=== PATIENT | male | born 1935 | race Asian ===

== ENCOUNTER 2017-09-10 12:19 | Outpatient (CLI) | payer MEDICARE, MEDICAID ==
[~2017-09-10 12:19] MED LIST: ALLO100T PO; ASPI-1265 PO; HYDR1TAB69 PO; PRED20TA PO
== END 2017-09-10 23:59 | disposition home or self-care (01) ==
LOC: RAD 12:19
PROVIDERS: ATTEND Student in an Organized Health Care Education/Training Program
DX: R90.82 White matter disease, unspecified (principal)
CPT/HCPCS: 70551

== ENCOUNTER 2017-09-30 08:07 | Emergency (ER) | payer MEDICARE, MEDICAID ==
[~2017-09-30] VITALS: Ht 157.5 cm; Wt 66.0 kg
[2017-09-30 08:12] VITALS: BP 154/88
[2017-09-30] MEDS ORDERED: dexamethasone 4mg tablet PO ONE (08:30)
[2017-09-30] MEDS ORDERED: colchicine 0.6mg tablet PO ONE (08:30)
[2017-09-30] MEDS ORDERED: naproxen 500mg tablet PO ONE (08:30)
[2017-09-30] MEDS ORDERED: HYDROcodone/acetaminophen 10/325mg tab PO ONE (08:30)
[2017-09-30 08:45] LABS: BASOPHILS % (AUTO) 0 % (0-1); EOSINOPHILS % (AUTO) 0 % (0-6); HEMATOCRIT 28.9 % (42.0-52.0); HEMOGLOBIN 10.1 g/dl (14.0-17.9); LYMPHOCYTES % (AUTO) 5.9 % (21-51); MEAN CORPUSCULAR HGB CONC 35.1 % (33.0-36.5); MEAN CORPUSCULAR VOLUME 88.3 FL (78-98); MEAN PLATELET VOLUME 8.2 FL (7.4-10.4); MONOCYTES # (AUTO) 1.4 X10'3 (0-0.9); MONOCYTES % (AUTO) 8.7 % (2-12); NEUTROPHILS # (AUTO) 13.9 X10'3 (1.8-7.7); NEUTROPHILS % (AUTO) 85.4 % (42-75); PLATELET COUNT 202 X10'3 (140-440); RED BLOOD COUNT 3.27 X10'6 (4.70-6.10); RED CELL DISTRIBUTION WIDTH 13.7 % (11.5-14.5); WHITE BLOOD COUNT 16.2 X10'3 (4.5-11.0)
[2017-09-30] MEDS ORDERED: morphine 2 MG/ML inj. syringe IV ONE (08:55)
[2017-09-30 09:01] LABS: ALANINE AMINOTRANSFERASE 46 U/L (12-78); ALBUMIN 2.6 G/DL (3.4-5.0); ALBUMIN/GLOBULIN RATIO 0.5 (1.1-1.5); ALKALINE PHOSPHATASE 236 IU/L (46-116); ANION GAP 14 (8-16); ASPARTATE AMINO TRANSFERASE 75 U/L (10-37); BILIRUBIN,TOTAL 2.6 MG/DL (0.1-1.0); BLOOD UREA NITROGEN 37 MG/DL (7-18); BUN/CREATININE RATIO 16.8 (5.4-32.0); CALCIUM 9.4 MG/DL (8.5-10.1); CHLORIDE 102 MMOL/L (99-107); CREATINE KINASE 178 U/L (39-308); GLUCOSE 142 MG/DL (70-104); LACTATE DEHYDROGENASE 190 U/L (85-227); MAGNESIUM 1.4 MG/DL (1.5-2.4); POTASSIUM 3.9 MMOL/L (3.5-5.1); SODIUM 137 MMOL/L (135-145); TOTAL CARBON DIOXIDE 21.3 MMOL/L (24-32); TOTAL PROTEIN 8.1 G/DL (6.4-8.2); eGFR 29 ML/MIN
[2017-09-30] MEDS ORDERED: morphine 4 MG/ML inj SYRINge IV ONE (09:05)
[2017-09-30] MEDS ORDERED: HYDR-569 PO (09:58)
== END 2017-09-30 10:36 | disposition home or self-care (01) ==
LOC: ER 08:08
DX: M10.9 Gout, unspecified (principal)
CPT/HCPCS: 36415; 71045; 73020; 80053; 82550; 83605; 83615; 83735; 84484; 84550; 85025; 87040; 93005; 96374; 99285; J2270; J8540

== ENCOUNTER 2020-12-03 12:18 | Emergency (ER) | payer MEDICARE, MEDICAID ==
[~2020-12-03] VITALS: Ht 137.2 cm; Wt 45.5 kg
[~2020-12-03 12:18] MED LIST changes: +HYDR-4383 PO
[2020-12-03 12:26] VITALS: BP 139/89
--- NOTE | 2020-12-03 12:32 | NUR ---
UNABLE TO OBTAIN OFFICIAL TENTER FRAME BACK TENDER R/T RARE DIALECT PER LOOM OPERATOR APPRENTICE.
[2020-12-03] MEDS ORDERED: methylPREDNISolone sod succ 125mg/2ml vial IV ONE (12:35)
[2020-12-03] MEDS ORDERED: colchicine 0.6mg tablet PO ONE (12:35)
[2020-12-03] MEDS ORDERED: normal saline 1000ML IV soln IVB ONE (12:35)
[2020-12-03] MEDS ORDERED: HYDROcodone/acetaminophen 10/325mg tab PO ONE (12:35)
[2020-12-03 12:54] LABS: BASOPHILS % (AUTO) 0.3 % (0-1); EOSINOPHILS % (AUTO) 0.3 % (0-6); HEMATOCRIT 34.2 % (42.0-52.0); HEMOGLOBIN 11.2 g/dl (14.0-17.9); LYMPHOCYTES # (AUTO) 1.5 X10'3 (1.1-4.8); LYMPHOCYTES % (AUTO) 10.5 % (21-51); MEAN CORPUSCULAR HEMOGLOBIN 29.6 PG (27.0-31.0); MEAN CORPUSCULAR HGB CONC 32.8 g/dL (33.0-36.5); MEAN CORPUSCULAR VOLUME 90.2 FL (78-98); MEAN PLATELET VOLUME 7.7 FL (7.4-10.4); MONOCYTES # (AUTO) 1.3 X10'3 (0-0.9); MONOCYTES % (AUTO) 9.2 % (2-12); NEUTROPHILS # (AUTO) 11.4 X10'3 (1.8-7.7); NEUTROPHILS % (AUTO) 79.7 % (42-75); PLATELET COUNT 357 X10'3 (140-440); RED BLOOD COUNT 3.79 X10'6 (4.70-6.10); RED CELL DISTRIBUTION WIDTH 14.5 % (11.5-14.5); WHITE BLOOD COUNT 14.3 X10'3 (4.5-11.0)
[2020-12-03 13:09] LABS: ALANINE AMINOTRANSFERASE 20 U/L (12-78); ALBUMIN 2.6 G/DL (3.4-5.0); ALBUMIN/GLOBULIN RATIO 0.4 (1.1-1.5); ALKALINE PHOSPHATASE 161 IU/L (46-116); ANION GAP 12 (8-16); ASPARTATE AMINO TRANSFERASE 30 U/L (10-37); BILIRUBIN,TOTAL 0.8 MG/DL (0.1-1.0); BLOOD UREA NITROGEN 50 MG/DL (7-18); BUN/CREATININE RATIO 21.6 (5.4-32.0); CALCIUM 9.7 MG/DL (8.5-10.1); CHLORIDE 100 MMOL/L (99-107); CREATININE 2.31 MG/DL (0.60-1.10); GLUCOSE 137 MG/DL (70-104); POTASSIUM 4.4 MMOL/L (3.5-5.1); SODIUM 137 MMOL/L (135-145); TOTAL CARBON DIOXIDE 25.1 MMOL/L (24-32); TOTAL PROTEIN 8.4 G/DL (6.4-8.2); eGFR 27 ML/MIN
--- NOTE | 2020-12-03 13:48 | NUR ---
family called, no answer at this time.
[2020-12-03] MEDS ORDERED: FEBU80TA3 PO (14:10)
[2020-12-03] MEDS ORDERED: HYDR-3972 PO (14:10)
[2020-12-03] MEDS ORDERED: PRED20TA PO (14:10)
[2020-12-03 14:24] LABS: CLARITY,URINE SLIGHTLY CLOUDY (Clear); COLOR,URINE YELLOW (Yellow); GLUCOSE, URINE NEGATIVE (Neg); KETONES,URINE NEGATIVE (Neg); LEUKOCYTE ESTERASE ,URINE NEGATIVE (Neg); NITRITES, URINE NEGATIVE (Neg); OCCULT BLOOD,URINE SMALL (Neg); PH,URINE 5.5 (4.8-8.0); PROTEIN,URINE 30 mg/dl (Neg); UROBILINOGEN,URINE 0.2 E.U/dL (0.2-1.0)
[2020-12-03 14:25] LABS: UA COLLECTION TYPE VOIDED
[2020-12-03 14:30] LABS: MUCUS STRANDS FEW /LPF (Neg); SQUAMOUS EPITHELIAL CELL,UR FEW /LPF (FEW)
[2020-12-03 14:32] LABS: BACTERIA,URINE FEW /HPF (Neg); RBC,URINE 0-2 /HPF (0-2)
[2020-12-03] MEDS ORDERED: CEPH-585 PO (14:43)
--- NOTE | 2020-12-03 14:43 | NUR ---
Telephone call to daughter at this time, no answer, will continue to re attempt.
[2020-12-03] MEDS ORDERED: cephalexin 250mg capsule PO ONE (14:55)
--- NOTE | 2020-12-03 15:04 | NUR ---
Call to family at this time, no answer, Dr Gregorio aware.
--- NOTE | 2020-12-03 16:46 | NUR ---
attempted to call daughter, no answer, left msg
--- NOTE | 2020-12-03 16:57 | NUR ---
family has returned call and will be here at some time today to take pt home
--- NOTE | 2020-12-03 17:19 | NUR ---
family will be here in 10-15 minutes
== END 2020-12-03 18:08 | disposition home or self-care (01) ==
LOC: ER 12:19
DX: M10.9 Gout, unspecified (principal); N28.9 Disorder of kidney and ureter, unspecified; D72.829 Elevated white blood cell count, unspecified; N39.0 Urinary tract infection, site not specified; M19.90 Unspecified osteoarthritis, unspecified site; Z79.899 Other long term (current) drug therapy
CPT/HCPCS: 36415; 71045; 80053; 81001; 84550; 85025; 87088; 96374; 99284; J2930; J7030

== ENCOUNTER 2021-07-25 21:45 | Inpatient (IN) | payer MEDICARE, MEDICAID ==
[~2021-07-25] VITALS: Ht 152.4 cm; Wt 68.0 kg
[~2021-07-25 21:45] MED LIST changes: +CEPH-585 PO; +FEBU80TA3 PO
[2021-07-25 22:39] LABS: BASOPHILS % (AUTO) 0.5 % (0-1); EOSINOPHILS # (AUTO) 0.1 X10'3 (0-0.9); EOSINOPHILS % (AUTO) 0.9 % (0-6); HEMATOCRIT 36.5 % (42.0-52.0); HEMOGLOBIN 11.7 g/dl (14.0-17.9); LYMPHOCYTES # (AUTO) 1.1 X10'3 (1.1-4.8); MEAN CORPUSCULAR HEMOGLOBIN 29.5 PG (27.0-31.0); MEAN PLATELET VOLUME 8.7 FL (7.4-10.4); MONOCYTES # (AUTO) 0.9 X10'3 (0-0.9); MONOCYTES % (AUTO) 12.1 % (2-12); NEUTROPHILS # (AUTO) 5.3 X10'3 (1.8-7.7); NEUTROPHILS % (AUTO) 71.5 % (42-75); PLATELET COUNT 248 X10'3 (140-440); RED BLOOD COUNT 3.97 X10'6 (4.70-6.10); RED CELL DISTRIBUTION WIDTH 16.3 % (11.5-14.5); WHITE BLOOD COUNT 7.3 X10'3 (4.5-11.0)
[2021-07-25 22:51] LABS: ALANINE AMINOTRANSFERASE 14 U/L (12-78); ALBUMIN 3.1 G/DL (3.4-5.0); ALBUMIN/GLOBULIN RATIO 0.6 (1.1-1.5); ALKALINE PHOSPHATASE 246 IU/L (46-116); ANION GAP 18 (8-16); ASPARTATE AMINO TRANSFERASE 63 U/L (10-37); BILIRUBIN,TOTAL 0.8 MG/DL (0.1-1.0); BLOOD UREA NITROGEN 72 MG/DL (7-18); CALCIUM 9.2 MG/DL (8.5-10.1); CHLORIDE 104 MMOL/L (99-107); CREATININE 3.27 MG/DL (0.60-1.10); GLUCOSE 114 MG/DL (70-104); LIPASE 360 U/L (73-393); POTASSIUM 4.4 MMOL/L (3.5-5.1); SODIUM 139 MMOL/L (135-145); TOTAL CARBON DIOXIDE 17.1 MMOL/L (24-32); TOTAL PROTEIN 7.9 G/DL (6.4-8.2); eGFR 18 ML/MIN
[2021-07-26] MEDS ORDERED: potassium CL 10mEq/100ml bag 100 ML IV PRN (02:40)
[2021-07-26] MEDS ORDERED: magnesium 2GM in 50ml NS 50 ML IV PRN (02:40)
[2021-07-26] MEDS ORDERED: acetaminophen 325mg tablet PO PRN (02:40)
[2021-07-26] MEDS ORDERED: magnesium 4gm in 100ml NS 100 ML IV PRN (02:40)
[2021-07-26] MEDS ORDERED: magnesium Cl slow-release 64mg tablet PO PRN (02:40)
[2021-07-26] MEDS ORDERED: potassium Cl 20 mEq SR tablet PO PRN ×2 (02:40)
[2021-07-26] MEDS: normal saline 1000ml 1,000 ML IV SCH ×2 (04:39→22:31)
--- NOTE | 2021-07-26 04:41 | NUR ---
Per EMS documentation, family contact number is [phone]
[2021-07-26] MEDS: K and/or MAG REPLACEMENT MC SCH ×2 (06:55→20:00)
[2021-07-26] MEDS: CefTRIAXone 2gm/D5W 50ml BAG 50 ML IV SCH (07:46)
[2021-07-26] MEDS: furosemide 40mg/4ml inj IV SCH ×2 (07:46→22:31)
[2021-07-26] MEDS ORDERED: heparin, porcine 5000 units/ml vial SQ SCH (08:00)
[2021-07-26] MEDS ORDERED: FEBU80TA PO (09:48)
[2021-07-26] MEDS ORDERED: COLC0.6T67 PO (09:48)
--- NOTE | 2021-07-26 10:17 | NUR ---
talked with family member who stated pt has been c/o generalized weakness and body aches for the past 2 wks. family stated pt has not been eating and if he does he has chest pain afterwards. [phone] King asked family to come to ED to talk about test results.
[2021-07-26] MEDS: ondansetron/PF 4mg/2ml inj IV PRN ×2 (11:47→22:33)
[2021-07-26] MEDS: morphine 2 MG/ML inj. syringe IV PRN (11:47)
--- NOTE | 2021-07-26 11:47 | NUR ---
per family pt c/o nausea and abd pain. per family stated would be unable to keep meds down.
--- NOTE | 2021-07-26 13:16 | NUR ---
pt to IR
--- NOTE | 2021-07-26 13:34 | NUR ---
IR staff was under the impression that Pedro [phone] was the consenting body for this patient. It was learned from the TOBACCO ROLLER responsible for the patient that there was a grandson involved who stated Pedro was not related to the patient and was not able to consent for the patient. Because of the discrepansy no procedure will be done at this time and a more formal process should take place to gain the proper consenting person's information. At which time IR will gain consent for procedure and proceed.
--- NOTE | 2021-07-26 13:51 | NUR ---
AFTER SEVERAL CONVERSATIONS WITH FAMILY IT HAS BEEN ESTABLISHED THAT SELENE ([phone])THE PTS SON MAKES MEDICAL DESCIONS FOR PT. SELENE USES [employer] TO TRANSLATE FOR HIM. SASHA THE PT NEPHEW IS USED THE SECOND LOAN COORDINATOR IF [facility] IS NOT AVAILABLE
[2021-07-26] MEDS: lactobacillus rhamnosus 10,000 MMU CELLS/CAPSULE PO SCH (20:00)
[2021-07-26 20:35] LABS: MAGNESIUM 1.8 MG/DL (1.5-2.4)
[2021-07-26] MEDS ORDERED: temazepam 15mg capsule PO PRN (21:00)
[2021-07-26 21:30] VITALS: BP 81/56
--- NOTE | 2021-07-26 21:30 | NUR ---
noted decreased BP and decreased sats at 82% on RA. placed on 4L oxygen - sats up to 95%. will continue to monitor. decreased bp at 81/56 map 61. paged info to Dr. Sr requesting bouls of IVF, repeat lactic level from 2.7 earlier, and question lasix order.
[2021-07-26 22:43] VITALS: BP 107/65
--- NOTE | 2021-07-26 22:50 | NUR ---
bp 107/65. no return call from dr. Sr. NS at 50ml/hr. cont pulse ox with 4L oxygen still at 93%. tried to explain need for UA to patient and provided apple juice and water. pt declined anything to eat. zofran given for nausea again. held lasix due to decreased BP. will continue to monitor.
[2021-07-26 23:54] VITALS: BP 87/48
[2021-07-27] VITALS (17 sets, daily range): BP systolic 84–134; BP diastolic 43–82
--- NOTE | 2021-07-27 00:03 | NUR ---
pt laying on left side to assist with breathing and for pain. grimaces whenever right arm moves or has to roll onto back. BP on upper left arm is lower when on his side. freq vs obtained - will continue to monitor. pt resting - sats 95 % and patient took off oxygen. urinal at bedside for UA - unsure if pt able to void with hx of CKD. cont pulse ox on telemetry.
--- NOTE | 2021-07-27 00:17 | NUR ---
no return call from Dr. Sr
--- NOTE | 2021-07-27 03:01 | NUR ---
Dr. Rollins ordered 250ml NS bolus, recheck blood pressure. if pressure below 90/50 give second bolus of 250ml. dr. rollins stated he would order an echo and ok to repeat lactic in am.
--- NOTE | 2021-07-27 04:26 | NUR ---
bolus complete. BP greater than 90/50. no need for second bolus. will continue to monitor. still no urine noted.
[2021-07-27 05:35] LABS: CLARITY,URINE SLIGHTLY CLOUDY (Clear); COLOR,URINE YELLOW (Yellow); GLUCOSE, URINE NEGATIVE (Neg); KETONES,URINE TRACE mg/dl (Neg); LEUKOCYTE ESTERASE ,URINE TRACE (Neg); NITRITES, URINE NEGATIVE (Neg); OCCULT BLOOD,URINE NEGATIVE (Neg); PROTEIN,URINE NEGATIVE (Neg); UROBILINOGEN,URINE 0.2 E.U/dL (0.2-1.0)
[2021-07-27 05:37] LABS: UA COLLECTION TYPE VOIDED
[2021-07-27 05:46] LABS: BACTERIA,URINE 2+ /HPF (Neg); MUCUS STRANDS NONE SEEN /LPF (Neg); RBC,URINE 0-2 /HPF (0-2); SQUAMOUS EPITHELIAL CELL,UR MODERATE /LPF (FEW)
[2021-07-27 05:47] LABS: COARSE GRANULAR CAST 0-3 /LPF (NEGATIVE)
--- NOTE | 2021-07-27 06:17 | NUR ---
reported to days. noted patient BP stable - need for thoracentesis and translater / POA contact due to patient's deaf.
--- NOTE | 2021-07-27 06:38 | NUR ---
Patient in room PCU 3018. I have received report from Nona GRIMES and had the opportunity to ask questions and assume patient care. Pt supine with HOB at 15 degrees, chest rising and falling evenly. safety measures in place. pt does not rouse to nurses voice.
[2021-07-27 07:07] LABS: BASOPHILS % (AUTO) 0.5 % (0-1); EOSINOPHILS # (AUTO) 0.1 X10'3 (0-0.9); EOSINOPHILS % (AUTO) 0.7 % (0-6); HEMATOCRIT 30.1 % (42.0-52.0); HEMOGLOBIN 9.8 g/dl (14.0-17.9); LYMPHOCYTES # (AUTO) 0.9 X10'3 (1.1-4.8); MEAN CORPUSCULAR HEMOGLOBIN 29.5 PG (27.0-31.0); MEAN CORPUSCULAR HGB CONC 32.5 g/dL (33.0-36.5); MEAN CORPUSCULAR VOLUME 90.6 FL (78-98); MONOCYTES # (AUTO) 0.9 X10'3 (0-0.9); MONOCYTES % (AUTO) 11.2 % (2-12); NEUTROPHILS % (AUTO) 76.6 % (42-75); PLATELET COUNT 216 X10'3 (140-440); RED BLOOD COUNT 3.32 X10'6 (4.70-6.10); RED CELL DISTRIBUTION WIDTH 16.7 % (11.5-14.5); WHITE BLOOD COUNT 7.9 X10'3 (4.5-11.0)
[2021-07-27 07:24] LABS: ALANINE AMINOTRANSFERASE 22 U/L (12-78); ALBUMIN 2.7 G/DL (3.4-5.0); ALBUMIN/GLOBULIN RATIO 0.6 (1.1-1.5); ALKALINE PHOSPHATASE 219 IU/L (46-116); ANION GAP 19 (8-16); ASPARTATE AMINO TRANSFERASE 56 U/L (10-37); BILIRUBIN,TOTAL 0.4 MG/DL (0.1-1.0); BLOOD UREA NITROGEN 79 MG/DL (7-18); BUN/CREATININE RATIO 22.3 (5.4-32.0); CALCIUM 8.8 MG/DL (8.5-10.1); CHLORIDE 109 MMOL/L (99-107); CREATININE 3.54 MG/DL (0.60-1.10); GLUCOSE 68 MG/DL (70-104); POTASSIUM 4.5 MMOL/L (3.5-5.1); SODIUM 143 MMOL/L (135-145); TOTAL CARBON DIOXIDE 15.4 MMOL/L (24-32); TOTAL PROTEIN 6.9 G/DL (6.4-8.2); eGFR 17 ML/MIN
[2021-07-27] MEDS: K and/or MAG REPLACEMENT MC SCH ×2 (08:00→20:00)
[2021-07-27] MEDS: lactobacillus rhamnosus 10,000 MMU CELLS/CAPSULE PO SCH ×2 (08:22→19:27)
[2021-07-27] MEDS: CefTRIAXone 2gm/D5W 50ml BAG 50 ML IV SCH (08:23)
[2021-07-27] MEDS: HYDROcodone/acetaminophen 5mg/325mg tablet PO PRN ×2 (10:17→16:53)
[2021-07-27] MEDS: furosemide 40mg/4ml inj IV SCH ×2 (14:39→19:27)
[2021-07-27 17:20] LABS: GLUCOSE,BODY FLUID 45 MG/DL; LDH,BODY FLUID 940 U/L; TOTAL PROTEIN,BODY FLUID 5.2 G/DL
[2021-07-27 18:05] LABS: LYMPHOCYTES,BODY FLUID 78 %; MONOCYTES,BODY FLUID 9 %; NEUTROPHILS,BODY FLUID 13 %
[2021-07-27 18:07] LABS: BF RBC COUNT 95500 /CU MM; BF WBC COUNT 78 /CU MM (0-1000); BFAPPEAR BLOODY; BFCOLOR RED; BFVOLUME 55 ML
[2021-07-27] MEDS: normal saline 1000ml 1,000 ML IV SCH (18:32)
--- NOTE | 2021-07-27 18:39 | NUR ---
Problems reprioritized. Patient report given, questions answered & plan of care reviewed with Ni RN. pt semi fowlers in bed. chest tube patent. no s/sx acute distress
[2021-07-28 02:00] VITALS: BP 108/65
[2021-07-28] MEDS: HYDROcodone/acetaminophen 5mg/325mg tablet PO PRN ×3 (03:14→18:52)
--- NOTE | 2021-07-28 06:30 | NUR ---
Patient in room PCU 3018. I have received report from Jesenia RN and had the opportunity to ask questions and assume patient care.
[2021-07-28 07:12] VITALS: BP 100/58
[2021-07-28 07:51] LABS: BASOPHILS % (AUTO) 0.5 % (0-1); EOSINOPHILS # (AUTO) 0.1 X10'3 (0-0.9); EOSINOPHILS % (AUTO) 1.3 % (0-6); HEMATOCRIT 31.4 % (42.0-52.0); LYMPHOCYTES # (AUTO) 0.7 X10'3 (1.1-4.8); LYMPHOCYTES % (AUTO) 10.1 % (21-51); MEAN CORPUSCULAR HEMOGLOBIN 29.9 PG (27.0-31.0); MEAN CORPUSCULAR HGB CONC 31.9 g/dL (33.0-36.5); MEAN CORPUSCULAR VOLUME 93.6 FL (78-98); MEAN PLATELET VOLUME 9.4 FL (7.4-10.4); MONOCYTES # (AUTO) 0.9 X10'3 (0-0.9); MONOCYTES % (AUTO) 12.8 % (2-12); NEUTROPHILS # (AUTO) 5.5 X10'3 (1.8-7.7); NEUTROPHILS % (AUTO) 75.3 % (42-75); PLATELET COUNT 184 X10'3 (140-440); RED BLOOD COUNT 3.36 X10'6 (4.70-6.10); RED CELL DISTRIBUTION WIDTH 17.6 % (11.5-14.5); WHITE BLOOD COUNT 7.3 X10'3 (4.5-11.0)
[2021-07-28] MEDS: K and/or MAG REPLACEMENT MC SCH ×2 (08:00→20:00)
[2021-07-28 08:12] LABS: ALANINE AMINOTRANSFERASE 24 U/L (12-78); ALBUMIN 2.5 G/DL (3.4-5.0); ALBUMIN/GLOBULIN RATIO 0.5 (1.1-1.5); ALKALINE PHOSPHATASE 210 IU/L (46-116); ANION GAP 21 (8-16); ASPARTATE AMINO TRANSFERASE 51 U/L (10-37); BILIRUBIN,TOTAL 0.4 MG/DL (0.1-1.0); BLOOD UREA NITROGEN 74 MG/DL (7-18); BUN/CREATININE RATIO 20.8 (5.4-32.0); CALCIUM 8.9 MG/DL (8.5-10.1); CHLORIDE 111 MMOL/L (99-107); CREATININE 3.55 MG/DL (0.60-1.10); GLUCOSE 66 MG/DL (70-104); POTASSIUM 4.1 MMOL/L (3.5-5.1); SODIUM 145 MMOL/L (135-145); TOTAL PROTEIN 7.1 G/DL (6.4-8.2); eGFR 16 ML/MIN
[2021-07-28 08:14] LABS: TOTAL CARBON DIOXIDE 13.4 MMOL/L (24-32)
--- NOTE | 2021-07-28 08:23 | NUR ---
critical CO2: 13.4 (down from 15.4) Dr. Sr paged. "PAGER ID: [phone] MESSAGE: RE: Xavi Yu: critical CO2 13.4. (down from 15.4). chest tube in and draining. -Agnes #[phone]"
[2021-07-28] MEDS: lactobacillus rhamnosus 10,000 MMU CELLS/CAPSULE PO SCH ×2 (09:15→20:10)
[2021-07-28] MEDS: furosemide 40mg/4ml inj IV SCH (09:15)
[2021-07-28] MEDS: CefTRIAXone 2gm/D5W 50ml BAG 50 ML IV SCH (09:15)
[2021-07-28] MEDS: dextrose 5%-1/2 normal saline 1,000 ML IV SCH (09:40)
--- NOTE | 2021-07-28 10:00 | NUR ---
Dr. Sr to the floor and notified of excessive chest tube drainage. (3500 in three hours). per Dr. Sr: "call angio doc. they will manage that." pt without sob. mild pain at chest tube insertion site.
[2021-07-28 11:00] VITALS: BP 98/67
--- NOTE | 2021-07-28 11:00 | NUR ---
chest tube with sanguanous drainage 3500ml out in [address] Vasquez called ( . Per Dr. Vasquez, the pt's cancer is pouring out fluid and this is ok. no upper limit for drainage. keep suction at -20."
--- NOTE | 2021-07-28 12:37 | NUR ---
Received page from RN requesting hot liquids only at this time per pt preferences, dietary notified with recommendation for hot tea TID. Per TC with RN pt to receive rice and broth TID per pt/family request, dietary notified. Addendum: 07/28/21 at [address] Amended: Links added.
--- NOTE | 2021-07-28 14:55 | NUR ---
diet/intake: pt tolerating small sips of hot water and broth from this nurse. refuses solid food/anything cold per cultural norm while sick.
[2021-07-28 15:00] VITALS: BP 92/57
[2021-07-28 17:24] LABS: CLARITY,URINE SLIGHTLY CLOUDY (Clear); GLUCOSE, URINE NEGATIVE (Neg); KETONES,URINE NEGATIVE (Neg); LEUKOCYTE ESTERASE ,URINE NEGATIVE (Neg); NITRITES, URINE NEGATIVE (Neg); OCCULT BLOOD,URINE NEGATIVE (Neg); PROTEIN,URINE NEGATIVE (Neg); UROBILINOGEN,URINE 0.2 E.U/dL (0.2-1.0)
[2021-07-28 17:27] LABS: COLOR,URINE STRAW (Yellow); UA COLLECTION TYPE NON-SPECIFIED
[2021-07-28 17:33] LABS: MUCUS STRANDS FEW /LPF (Neg); SQUAMOUS EPITHELIAL CELL,UR FEW /LPF (FEW)
[2021-07-28 17:34] LABS: BACTERIA,URINE 1+ /HPF (Neg); RBC,URINE 0-2 /HPF (0-2); WBC,URINE 0-4 /HPF (0-4)
[2021-07-28 17:51] LABS: UA EOSINOPHILS NO EOS /HPF
[2021-07-28 18:00] VITALS: BP_SYST 104; BP_SYST 113; BP_DIAS 62; BP_DIAS 67
--- NOTE | 2021-07-28 18:44 | NUR ---
Problems reprioritized. Patient report given, questions answered & plan of care reviewed with Chelita GRIMES. Pt sitting up in bed, Dong jenkins at bedside and endorses pt with pain. Chelita to medicate prn. Chest tube patent, low suction. no s/sx acute dsitress
--- NOTE | 2021-07-28 19:00 | NUR ---
Mr Negron has been assessed as indicated. He does not appear to be comfortable. His grandson has left the bedside. PO pain medication has been provided. He has been wrapped in warm blankets and made as comfortable as possible. He accepts small sips of warm water. chest tube has a good seal with small amount of SS output. He will continue to be monitored
[2021-07-28 22:00] VITALS: BP 107/64
--- NOTE | 2021-07-29 | NUR ---
Mr Negron has a facial grimace and is rocking in bed. he is being provided with PO pain medication for comfort.
[2021-07-29] MEDS: HYDROcodone/acetaminophen 5mg/325mg tablet PO PRN ×2 (00:10→04:57)
--- NOTE | 2021-07-29 01:30 | NUR ---
Mr Negron is resting quietly. He is lying back wrapped in blankets he has a relaxed facial expression. he will continue to be monitored
[2021-07-29 02:00] VITALS: BP 100/58
[2021-07-29] MEDS: dextrose 5%-1/2 normal saline 1,000 ML IV SCH (04:57)
--- NOTE | 2021-07-29 06:20 | NUR ---
Patient in room PCU 3018. I have received report from CORNELIO Merlos and had the opportunity to ask questions and assume patient care.
[2021-07-29 06:30] VITALS: BP 108/62
--- NOTE | 2021-07-29 06:38 | NUR ---
Problems reprioritized. Patient report given, questions answered & plan of care reviewed with Yamile RN.
[2021-07-29 07:28] LABS: BASOPHILS % (AUTO) 0.3 % (0-1); EOSINOPHILS # (AUTO) 0.1 X10'3 (0-0.9); EOSINOPHILS % (AUTO) 1.8 % (0-6); HEMATOCRIT 31.9 % (42.0-52.0); HEMOGLOBIN 10.5 g/dl (14.0-17.9); LYMPHOCYTES # (AUTO) 0.6 X10'3 (1.1-4.8); MEAN CORPUSCULAR HEMOGLOBIN 29.6 PG (27.0-31.0); MEAN CORPUSCULAR HGB CONC 32.8 g/dL (33.0-36.5); MEAN CORPUSCULAR VOLUME 90.1 FL (78-98); MEAN PLATELET VOLUME 9.4 FL (7.4-10.4); NEUTROPHILS # (AUTO) 5.1 X10'3 (1.8-7.7); NEUTROPHILS % (AUTO) 74.9 % (42-75); PLATELET COUNT 170 X10'3 (140-440); RED BLOOD COUNT 3.54 X10'6 (4.70-6.10); RED CELL DISTRIBUTION WIDTH 16.3 % (11.5-14.5); WHITE BLOOD COUNT 6.8 X10'3 (4.5-11.0)
[2021-07-29 07:35] LABS: ALANINE AMINOTRANSFERASE 23 U/L (12-78); ALBUMIN 2.4 G/DL (3.4-5.0); ALBUMIN/GLOBULIN RATIO 0.5 (1.1-1.5); ALKALINE PHOSPHATASE 193 IU/L (46-116); ANION GAP 17 (8-16); ASPARTATE AMINO TRANSFERASE 53 U/L (10-37); BILIRUBIN,TOTAL 0.4 MG/DL (0.1-1.0); BLOOD UREA NITROGEN 73 MG/DL (7-18); CALCIUM 8.8 MG/DL (8.5-10.1); CHLORIDE 110 MMOL/L (99-107); CREATININE 3.18 MG/DL (0.60-1.10); GLUCOSE 102 MG/DL (70-104); POTASSIUM 3.8 MMOL/L (3.5-5.1); SODIUM 144 MMOL/L (135-145); TOTAL CARBON DIOXIDE 17.5 MMOL/L (24-32); TOTAL PROTEIN 6.8 G/DL (6.4-8.2); eGFR 19 ML/MIN
[2021-07-29] MEDS: K and/or MAG REPLACEMENT MC SCH ×2 (09:51→19:30)
[2021-07-29 11:00] VITALS: BP 99/52
[2021-07-29] MEDS: lactobacillus rhamnosus 10,000 MMU CELLS/CAPSULE PO SCH ×2 (11:16→19:34)
[2021-07-29] MEDS: allopurinol 100mg tablet PO SCH (11:16)
[2021-07-29] MEDS: CefTRIAXone 2gm/D5W 50ml BAG 50 ML IV SCH (11:17)
[2021-07-29] MEDS ORDERED: bisacodyl 5mg tablet.DR PO PRN (12:45)
[2021-07-29] MEDS ORDERED: magnesium hydroxide 30ml (MOM) UD suspension PO PRN (12:45)
[2021-07-29] MEDS ORDERED: bisacodyl 10mg suppository rectal RC PRN (12:45)
[2021-07-29] MEDS: morphine 2 MG/ML inj. syringe IV PRN (13:05)
[2021-07-29 15:00] VITALS: BP 93/57
[2021-07-29] MEDS: HYDROcodone/acetaminophen 10/325mg tab PO PRN ×2 (17:48→22:28)
--- NOTE | 2021-07-29 18:20 | NUR ---
Problems reprioritized. Patient report given, questions answered & plan of care reviewed with CORNELIO Merlos.
[2021-07-29 22:00] VITALS: BP 110/68
[2021-07-30] MEDS: morphine 2 MG/ML inj. syringe IV PRN ×2 (00:05→19:37)
[2021-07-30 02:00] VITALS: BP 113/70
[2021-07-30] MEDS: dextrose 5%-1/2 normal saline 1,000 ML IV SCH (05:29)
[2021-07-30] MEDS: HYDROcodone/acetaminophen 5mg/325mg tablet PO PRN ×2 (05:29→16:51)
--- NOTE | 2021-07-30 05:30 | NUR ---
Mr Negron has been assessed as indicated. He has been successfully treated for pain 3x this shift. He voids in the urinal in very small amounts. He has had 2 episodes of crying out loudly this shift. When this has happened it appears that he has awakened in pain and is itching. This check writer salesperson assists by scratching his back especially near the chest tube site. With a thin blanket over his skin and finger tips on top of the blanket. This seems to relieve the discomfort. 125ml out of chest tube no BM. very little PO intake. All efforts have been made to keep the patient as comfortable as possible
[2021-07-30 06:00] VITALS: BP 117/77
--- NOTE | 2021-07-30 06:00 | NUR ---
Patient in room PCU 3018. I have received report from CORNELIO Merlos and had the opportunity to ask questions and assume patient care.
[2021-07-30 06:48] LABS: BASOPHILS % (AUTO) 0.4 % (0-1); EOSINOPHILS # (AUTO) 0.1 X10'3 (0-0.9); EOSINOPHILS % (AUTO) 1.9 % (0-6); HEMATOCRIT 28.6 % (42.0-52.0); HEMOGLOBIN 9.6 g/dl (14.0-17.9); LYMPHOCYTES % (AUTO) 14.5 % (21-51); MEAN CORPUSCULAR HEMOGLOBIN 29.8 PG (27.0-31.0); MEAN CORPUSCULAR HGB CONC 33.5 g/dL (33.0-36.5); MEAN PLATELET VOLUME 9.3 FL (7.4-10.4); MONOCYTES % (AUTO) 13.7 % (2-12); NEUTROPHILS # (AUTO) 4.9 X10'3 (1.8-7.7); NEUTROPHILS % (AUTO) 69.5 % (42-75); PLATELET COUNT 170 X10'3 (140-440); RED BLOOD COUNT 3.22 X10'6 (4.70-6.10); RED CELL DISTRIBUTION WIDTH 16.8 % (11.5-14.5); WHITE BLOOD COUNT 7.1 X10'3 (4.5-11.0)
--- NOTE | 2021-07-30 07:00 | NUR ---
Problems reprioritized. Patient report given, questions answered & plan of care reviewed with kirsten Garcia
[2021-07-30 07:17] LABS: ALANINE AMINOTRANSFERASE 21 U/L (12-78); ALBUMIN 2.2 G/DL (3.4-5.0); ALBUMIN/GLOBULIN RATIO 0.5 (1.1-1.5); ALKALINE PHOSPHATASE 172 IU/L (46-116); ANION GAP 14 (8-16); ASPARTATE AMINO TRANSFERASE 48 U/L (10-37); BILIRUBIN,TOTAL 0.3 MG/DL (0.1-1.0); BLOOD UREA NITROGEN 69 MG/DL (7-18); BUN/CREATININE RATIO 22.5 (5.4-32.0); CHLORIDE 110 MMOL/L (99-107); CREATININE 3.06 MG/DL (0.60-1.10); GLUCOSE 124 MG/DL (70-104); POTASSIUM 3.6 MMOL/L (3.5-5.1); SODIUM 144 MMOL/L (135-145); TOTAL CARBON DIOXIDE 20.2 MMOL/L (24-32); TOTAL PROTEIN 6.5 G/DL (6.4-8.2); eGFR 20 ML/MIN
[2021-07-30] MEDS: K and/or MAG REPLACEMENT MC SCH ×2 (08:00→19:37)
[2021-07-30] MEDS: lactobacillus rhamnosus 10,000 MMU CELLS/CAPSULE PO SCH ×2 (08:43→19:38)
[2021-07-30] MEDS: allopurinol 100mg tablet PO SCH (08:43)
[2021-07-30] MEDS: CefTRIAXone 2gm/D5W 50ml BAG 50 ML IV SCH (08:43)
[2021-07-30 11:00] VITALS: BP 111/70
--- NOTE | 2021-07-30 12:27 | NUR ---
Malnutrition/boo consult: Pt admitted w/ Left lung mass, likely lung cancer, large left pleural effusion, chronic kidney disease stage 4, anemia of chronic disease per EMR. Pt currently on Regular diet w/ 0% intake of meals since admit, noted to only have some sips of warm water and broth. Pt may need nutrition support if continues to refuse meals if within POC, d/w RN. Unable to obtain information from pt as he is apparently deaf and does not speak much Mont[place]in. Current wt not scaled though consistent w/ previous admits. Pt appears thin though relatively appropriate for age; no visible signs of significant muscle or fat wasting observed at bedside. No edema noted though pt does have Chest tube. At this time; pt does not meet minimum criteria for malnutrition. Will continue to monitor. Recs: 1. Continue Regular diet as tolerated 2. Tea, Rice, Broth TID per pt preference 3. Nutrition support if PO does not improve and within POC 4. Bowel care per rx 5. Scaled wt Addendum: 07/30/21 at [address] Amended: Links added.
--- NOTE | 2021-07-30 14:46 | NUR ---
PRESSURE ULCER EDUCATION: DEFINITION: A pressure ulcer is an area of skin that breaks down when you stay in one position too long. The constant pressure against the skin reduces the blood flow to that area and the affected tissue dies. CAUSES: "Being bedridden or in a wheelchair "Fragile skin "Having a chronic condition, such as diabetes or vascular disease "Inability to move certain parts of your body without assistance "Older age "Incontinence of urine or stool SYMPTOMS: "A reddened area that DOES NOT turn white when pressed on - this can be the beginning of a pressure ulcer "A blister, deep sore or a crater - these can be advanced pressure ulcers FIRST AID: "Relieve the pressure on this area "Keep the area clean and dry "Call your primary doctor if you see any of the above symptoms "DO NOT massage the area "DO NOT use a donut shaped or ring shaped pillow- these actually interfere with the blood flow and cause complications PREVENTION: "Check for pressure ulcers everyday "Change position at least every two hours to relieve pressure "Use items that help relieve pressure- pillows, sheepskin, foam padding, and powders. "Keep skin clean and dry "Eat healthy well balanced meals "Exercise daily IF YOU SEE ANY OF THESE SYMPTOMS WHILE IN THE HOSPITAL - TELL YOUR NURSE IMMEDIATELY. IF YOU SEE ANY OF THESE SYMPTOMS WHILE AT HOME OR HAVE ANY QUESTIONS OR CONCERNS ABOUT PRESSURE ULCERS - CALL YOUR PRIMARY DOCTOR IMMEDIATELY. Addendum: 07/30/21 at 1447 by Rosa Isela Spivey RN Amended: Links added.
[2021-07-30 15:00] VITALS: BP 95/67
[2021-07-30 18:00] VITALS: BP 120/57
[2021-07-30 22:00] VITALS: BP 101/57
[2021-07-31 02:00] VITALS: BP 101/62
[2021-07-31] MEDS: HYDROcodone/acetaminophen 10/325mg tab PO PRN (03:44)
[2021-07-31] MEDS: dextrose 5%-1/2 normal saline 1,000 ML IV SCH (03:47)
--- NOTE | 2021-07-31 05:56 | NUR ---
Mr Negron has been assessed as indicated. He continues to rest most of the shift. He has been assisted to void by staff. He continues to be oliguric. IVF have been well tolerated. Chest tube continues to drain SS fluids. He is constantly scratching when he is awake. He has been successfully treated for pain 3x this shift. He is presently resting quietly and will continue to be monitored
[2021-07-31 06:00] VITALS: BP 91/50
--- NOTE | 2021-07-31 06:15 | NUR ---
Problems reprioritized. Patient report given, questions answered & plan of care reviewed with Amanda contreras
[2021-07-31] MEDS: CefTRIAXone 2gm/D5W 50ml BAG 50 ML IV SCH (07:33)
[2021-07-31] MEDS: lactobacillus rhamnosus 10,000 MMU CELLS/CAPSULE PO SCH ×2 (07:33→20:39)
[2021-07-31] MEDS: K and/or MAG REPLACEMENT MC SCH ×2 (08:00→20:00)
[2021-07-31] MEDS: HYDROcodone/acetaminophen 5mg/325mg tablet PO PRN ×2 (08:07→20:39)
[2021-07-31 08:15] LABS: BASOPHILS % (AUTO) 0.4 % (0-1); EOSINOPHILS # (AUTO) 0.1 X10'3 (0-0.9); EOSINOPHILS % (AUTO) 1.8 % (0-6); HEMATOCRIT 28.4 % (42.0-52.0); HEMOGLOBIN 9.3 g/dl (14.0-17.9); LYMPHOCYTES # (AUTO) 0.9 X10'3 (1.1-4.8); LYMPHOCYTES % (AUTO) 15.7 % (21-51); MEAN CORPUSCULAR HEMOGLOBIN 29.7 PG (27.0-31.0); MEAN CORPUSCULAR HGB CONC 32.8 g/dL (33.0-36.5); MEAN CORPUSCULAR VOLUME 90.7 FL (78-98); MEAN PLATELET VOLUME 9.4 FL (7.4-10.4); MONOCYTES # (AUTO) 0.8 X10'3 (0-0.9); MONOCYTES % (AUTO) 14.5 % (2-12); NEUTROPHILS # (AUTO) 3.9 X10'3 (1.8-7.7); NEUTROPHILS % (AUTO) 67.6 % (42-75); PLATELET COUNT 161 X10'3 (140-440); RED BLOOD COUNT 3.14 X10'6 (4.70-6.10); RED CELL DISTRIBUTION WIDTH 16.6 % (11.5-14.5); WHITE BLOOD COUNT 5.8 X10'3 (4.5-11.0)
[2021-07-31 08:26] LABS: ALANINE AMINOTRANSFERASE 17 U/L (12-78); ALBUMIN 2.2 G/DL (3.4-5.0); ALBUMIN/GLOBULIN RATIO 0.6 (1.1-1.5); ALKALINE PHOSPHATASE 168 IU/L (46-116); ANION GAP 11 (8-16); ASPARTATE AMINO TRANSFERASE 43 U/L (10-37); BILIRUBIN,TOTAL 0.3 MG/DL (0.1-1.0); BLOOD UREA NITROGEN 70 MG/DL (7-18); BUN/CREATININE RATIO 24.6 (5.4-32.0); CALCIUM 8.6 MG/DL (8.5-10.1); CHLORIDE 108 MMOL/L (99-107); CREATININE 2.85 MG/DL (0.60-1.10); GLUCOSE 113 MG/DL (70-104); POTASSIUM 3.7 MMOL/L (3.5-5.1); SODIUM 140 MMOL/L (135-145); TOTAL CARBON DIOXIDE 20.8 MMOL/L (24-32); TOTAL PROTEIN 6.1 G/DL (6.4-8.2); eGFR 21 ML/MIN
[2021-07-31 11:00] VITALS: BP 109/63
[2021-07-31 15:00] VITALS: BP 114/63
[2021-07-31 18:00] VITALS: BP 109/60
--- NOTE | 2021-07-31 18:30 | NUR ---
Patient in room PCU 3018. I have received report from Ernesto Garcia RN and had the opportunity to ask questions and assume patient care.
[2021-07-31 22:00] VITALS: BP 114/64
[2021-08-01] MEDS: dextrose 5%-1/2 normal saline 1,000 ML IV SCH (01:03)
[2021-08-01] MEDS: HYDROcodone/acetaminophen 5mg/325mg tablet PO PRN (01:07)
--- NOTE | 2021-08-01 05:20 | NUR ---
Patient remains stable, pt on 2L NC, pain medication PRN norco P.O was given twice during the night, patient is still anuric.
[2021-08-01 06:00] VITALS: BP 105/69
--- NOTE | 2021-08-01 06:23 | NUR ---
Problems reprioritized. Patient report given, questions answered & plan of care reviewed with Ernesto Garcia RN.
[2021-08-01] MEDS: lactobacillus rhamnosus 10,000 MMU CELLS/CAPSULE PO SCH (08:10)
[2021-08-01] MEDS: CefTRIAXone 2gm/D5W 50ml BAG 50 ML IV SCH (08:10)
--- NOTE | 2021-08-01 08:42 | NUR ---
Reassessment: Pt continues on Regular diet w/ mostly 0% intake of meals not meeting needs. Pt noted to be anuric. Given 0% meal intake for at least 5 days, mild muscle weakness, and mild wasting to temporal and clavicular regions, pt meets minimum criteria for malnutrition, MD notified. Pt receiving D5 1/2 NS at 50ml/hr providing 204kcals. Per MD note, pt's family has requested to go home on hospice. Will continue to monitor Recs: 1. Continue Regular diet as tolerated 2. Tea, Rice, Broth TID per pt preference 3. Nutrition support if PO does not improve and within POC 4. Bowel care per rx 5. Scaled wt Addendum: 08/01/21 at [address] Amended: Links added.
--- NOTE | 2021-08-01 10:23 | NUR ---
I notified family (Leana dupree) patient is discharge home today around 11:00 am.
--- NOTE | 2021-08-01 11:00 | NUR ---
Patient discharge home via ambulane. [facility], family was notified.
== END 2021-08-01 11:30 | disposition hospice, home (50) | DRG 180 ==
LOC: ER 21:46 → ED HOLD 07-26 02:42 → PCU 3S 07-26 21:16
PROVIDERS: ADMIT Internal Medicine; ATTEND Family Medicine
PROC: 0W9B30Z Drainage of Left Pleural Cavity with Drainage Device, Percutaneous Approach (ICD-10-PCS; principal; 2021-07-27)
DX: C34.32 Malignant neoplasm of lower lobe, left bronchus or lung (principal); N17.0 Acute kidney failure with tubular necrosis; J91.0 Malignant pleural effusion; N18.4 Chronic kidney disease, stage 4 (severe); J93.9 Pneumothorax, unspecified; J98.11 Atelectasis; R64 Cachexia; E87.2 Acidosis; C78.2 Secondary malignant neoplasm of pleura; Z66 Do not resuscitate; M19.90 Unspecified osteoarthritis, unspecified site; R19.7 Diarrhea, unspecified; M10.9 Gout, unspecified; Z20.822 Contact with and (suspected) exposure to COVID-19; R54 Age-related physical debility; R74.8 Abnormal levels of other serum enzymes; R79.89 Other specified abnormal findings of blood chemistry; F17.210 Nicotine dependence, cigarettes, uncomplicated; D63.8 Anemia in other chronic diseases classified elsewhere; Z51.5 Encounter for palliative care; Z68.29 Body mass index [BMI] 29.0-29.9, adult; Z79.899 Other long term (current) drug therapy
CPT/HCPCS: 32557; 36415; 70450; 71045; 71250; 74176; 76770; 80053; 81001; 82570; 82945; 83605; 83615; 83690; 83735; 84156; 84157; 84300; 84484; 84550; 85025; 87040; 87070; 87075; 87077; 87081; 87088; 87207; 87635; 89051; 93005; 93306; 97161; 97530; 99285; G0378; J0696; J1940; J2270; J2405; J7030; J7042